=== PATIENT | male | born 1955 | race African-American/Black ===

== ENCOUNTER 2023-07-21 11:45 | Inpatient (IN) | payer OTHER ==
[2023-07-21 12:23] VITALS: BMI 23.7
[2023-07-21] MEDS ORDERED: VANCOMYCIN 1 GM PREMIX - 1 GM/200 ML BAG IVPB ONE (13:41)
[2023-07-21] MEDS ORDERED: VANCOMYCIN 1 GRAM (PRE-DOCKED) 1,000 MG/250 ML BAG IVPB ONE (14:17)
[2023-07-21 14:52] LABS: BASO % 0.2 % (0-2.0); EOS % 0.1 % (0-4.5); HEMOGLOBIN 11.6 GM/dL (11.7-16.9); LYMPH % 12.1 % (8-40); MCH 29.7 pg (25.7-33.7); MCHC 31.4 g/dl (32.0-35.9); MEAN CELL VOLUME 94.6 fl (80-96); MEAN PLT VOLUME 7.9 fl (7.5-11.1); NEUT % 77.6 % (42.8-82.8); PLATELET COUNT 259 10^3/uL (134-434); RBC 3.91 M/mm3 (4.00-5.60); WHITE BLOOD COUNT 8.4 K/mm3 (4.0-10.0)
[2023-07-21 15:28] LABS: CHLORIDE 99 mmol/L (98-107); SODIUM 141 mmol/L (136-145)
[2023-07-21 15:31] LABS: CALCIUM 8.4 mg/dL (8.5-10.1)
[2023-07-21 15:32] LABS: ALBUMIN 2.8 g/dl (3.4-5.0); BLOOD UREA NITROGEN 17.6 mg/dL (7-18); CO2 33 mmol/L (21-32); GLUCOSE,RANDOM 111 mg/dL (74-106)
[2023-07-21 15:35] LABS: CREATININE 1.2 mg/dL (0.55-1.3); SGOT/AST 71 U/L (15-37); SGPT/ALT 98 U/L (13-61)
[2023-07-21 15:36] LABS: BILIRUBIN,TOTAL 2.3 mg/dL (0.2-1)
[2023-07-21 15:37] LABS: TOT PROT 6.7 g/dl (6.4-8.2)
[2023-07-21 15:38] LABS: ALK PHOS 206 U/L (45-117)
[2023-07-21 15:43] LABS: ANION GAP 9 mmol/L (4-13); POTASSIUM 2.9 mmol/L (3.5-5.1)
[2023-07-21] MEDS ORDERED: KCL 10 MEQ IVPB 10 MEQ/100 ML INFUS.BAG IVPB SCH (16:45)
[2023-07-21 16:56] LABS: MAGNESIUM 2.2 mg/dL (1.8-2.4)
[2023-07-21] MEDS ORDERED: KCL 10 MEQ IVPB 30 MEQ/300 ML INFUS.BAG IVPB ONE (17:49)
[2023-07-22] MEDS ORDERED: PIPERACILLIN/TAZOB 3.375 GM 3.375 GM in DEXTROSE 5%-WATER - 50 ML IVPB SCH (02:00)
[2023-07-22] MEDS: PIPERACILLIN/TAZOB 3.375 GM 3.375 GM in DEXTROSE 5%-WATER - 50 ML IVPB SCH ×2 (02:32→10:40)
[2023-07-22] MEDS ORDERED: PATIENT'S OWN MEDICATION (NON-FORMULARY) (Potassium Chloride [Potassium Chloride] 20 MEQ T PO SCH (10:00)
[2023-07-22 10:08] LABS: HEMATOCRIT 33.4 % (35.4-49); HEMOGLOBIN 11.2 GM/dL (11.7-16.9); MCH 30.8 pg (25.7-33.7); MCHC 33.5 g/dl (32.0-35.9); MEAN CELL VOLUME 91.9 fl (80-96); MEAN PLT VOLUME 7.9 fl (7.5-11.1); PLATELET COUNT 234 10^3/uL (134-434); RBC 3.64 M/mm3 (4.00-5.60); WHITE BLOOD COUNT 7.7 K/mm3 (4.0-10.0)
[2023-07-22 10:21] LABS: CHLORIDE 100 mmol/L (98-107); SODIUM 142 mmol/L (136-145)
[2023-07-22 10:26] LABS: ALBUMIN 2.4 g/dl (3.4-5.0); BLOOD UREA NITROGEN 17.9 mg/dL (7-18); CALCIUM 8.2 mg/dL (8.5-10.1); CO2 29 mmol/L (21-32); GLUCOSE,RANDOM 102 mg/dL (74-106); MAGNESIUM 2.3 mg/dL (1.8-2.4)
[2023-07-22 10:29] LABS: BILIRUBIN,DIRECT 1.4 mg/dL (0.0-0.2); CREATININE 1.1 mg/dL (0.55-1.3); PHOSPHOROUS 2.3 mg/dL (2.5-4.9); SGOT/AST 79 U/L (15-37); SGPT/ALT 84 U/L (13-61)
[2023-07-22 10:31] LABS: BILIRUBIN,TOTAL 2.6 mg/dL (0.2-1); TOT PROT 5.9 g/dl (6.4-8.2)
[2023-07-22 10:32] LABS: ALK PHOS 206 U/L (45-117)
[2023-07-22 10:36] LABS: ANION GAP 12 mmol/L (4-13); POTASSIUM 2.9 mmol/L (3.5-5.1)
[2023-07-22] MEDS: metoPROLOL SUCCINATE 25 MG TAB.SR.24H (FP) PO SCH ×2 (10:39→10:58)
[2023-07-22] MEDS: LOSARTAN 50MG/HCTZ 12.5MG 1 TAB PO SCH ×2 (10:39→10:58)
[2023-07-22] MEDS: amLODIPine BESYLATE 5 MG TABLET (FP) PO SCH ×2 (10:39→10:58)
[2023-07-22] MEDS: POTASSIUM CHLORIDE TABS 20 MEQ TABLET.ER (FP) PO SCH (10:39)
[2023-07-22] MEDS: ENOXAPARIN NA (PORCINE) 40 MG/0.4 ML DISP.SYRIN SQ SCH (10:39)
[2023-07-22] MEDS: LIDOCAINE 4% PATCH TP SCH (10:55)
[2023-07-22] MEDS ORDERED: POLYETHYLENE GLYCOL (HEALTHYLAX) 3350 17 GM PACKET PO ONE (11:30)
[2023-07-22] MEDS ORDERED: MINERAL OIL/PETROLAT/WATER TOPICAL CREAM 454 GM JAR TP PRN (15:09)
[2023-07-22] MEDS: CEFAZOLIN SODIUM 2 GM in DEXTROSE 5%-WATER 100 ML IVPB SCH (16:24)
[2023-07-22] MEDS: THIAMINE HCL 100 MG TABLET (FP) PO SCH (16:24)
[2023-07-22] MEDS: KCL 10 MEQ IVPB 10 MEQ/100 ML INFUS.BAG IVPB SCH ×3 (17:14→20:00)
[2023-07-22 18:08] LABS: COCAINE, UR NEGATIVE (NEGATIVE); METHADONE, UR NEGATIVE (NEGATIVE)
[2023-07-22 18:09] LABS: OPIATES, URI NEGATIVE (NEGATIVE); URINE BARBITURATES NEGATIVE (NEGATIVE)
[2023-07-22 18:12] LABS: PHENCYCLIDINE,URINE NEGATIVE (NEGATIVE); URINE AMPHETAMINES NEGATIVE (NEGATIVE); URINE BENZODIAZEPINES POSITIVE (NEGATIVE)
[2023-07-22] MEDS ORDERED: ACETAMINOPHEN 325 MG TABLET (FP) PO PRN (18:54)
[2023-07-22] MEDS: ACETAMINOPHEN 325 MG TABLET (FP) PO PRN (21:36)
[2023-07-22] MEDS: LIDOCAINE PATCH REMOVAL MC SCH (21:36)
[2023-07-23] MEDS: CEFAZOLIN SODIUM 2 GM in DEXTROSE 5%-WATER 100 ML IVPB SCH ×3 (03:00→17:17)
[2023-07-23 09:06] LABS: POTASSIUM 3.2 mmol/L (3.5-5.1)
[2023-07-23 09:11] LABS: BLOOD UREA NITROGEN 19.7 mg/dL (7-18); CALCIUM 8.5 mg/dL (8.5-10.1)
[2023-07-23 09:12] LABS: ALBUMIN 2.2 g/dl (3.4-5.0)
[2023-07-23 09:14] LABS: BILIRUBIN,DIRECT 1.4 mg/dL (0.0-0.2); CREATININE 1.1 mg/dL (0.55-1.3)
[2023-07-23 09:15] LABS: BILIRUBIN,TOTAL 2.3 mg/dL (0.2-1)
[2023-07-23] MEDS: LIDOCAINE 4% PATCH TP SCH (09:38)
[2023-07-23] MEDS: POTASSIUM CHLORIDE TABS 20 MEQ TABLET.ER (FP) PO SCH (09:39)
[2023-07-23] MEDS: amLODIPine BESYLATE 5 MG TABLET (FP) PO SCH (09:39)
[2023-07-23] MEDS: THIAMINE HCL 100 MG TABLET (FP) PO SCH (09:39)
[2023-07-23] MEDS: metoPROLOL SUCCINATE 25 MG TAB.SR.24H (FP) PO SCH (09:39)
[2023-07-23] MEDS: LOSARTAN 50MG/HCTZ 12.5MG 1 TAB PO SCH (09:40)
[2023-07-23] MEDS: ACETAMINOPHEN 325 MG TABLET (FP) PO PRN ×2 (09:41→17:59)
[2023-07-23] MEDS: ENOXAPARIN NA (PORCINE) 40 MG/0.4 ML DISP.SYRIN SQ SCH (09:44)
[2023-07-23] MEDS ORDERED: POTASSIUM CHLORIDE ORAL LIQUID 20 MEQ/15 ML PO ONE (10:30)
[2023-07-23] MEDS: LIDOCAINE PATCH REMOVAL MC SCH (22:20)
[2023-07-24] MEDS: ACETAMINOPHEN 325 MG TABLET (FP) PO PRN (01:07)
[2023-07-24] MEDS: CEFAZOLIN SODIUM 2 GM in DEXTROSE 5%-WATER 100 ML IVPB SCH ×3 (02:10→17:23)
[2023-07-24 09:43] LABS: BASO % 0.4 % (0-2.0); EOS % 0.4 % (0-4.5); HEMATOCRIT 32.1 % (35.4-49); HEMOGLOBIN 10.2 GM/dL (11.7-16.9); LYMPH % 12.7 % (8-40); MCH 29.6 pg (25.7-33.7); MCHC 31.6 g/dl (32.0-35.9); MEAN CELL VOLUME 93.8 fl (80-96); MEAN PLT VOLUME 7.7 fl (7.5-11.1); MONO % 6.6 % (3.8-10.2); NEUT % 79.9 % (42.8-82.8); PLATELET COUNT 249 10^3/uL (134-434); RBC 3.43 M/mm3 (4.00-5.60); RDW 14.3 % (11.9-15.9); WHITE BLOOD COUNT 8.4 K/mm3 (4.0-10.0)
[2023-07-24 09:54] LABS: POTASSIUM 3.3 mmol/L (3.5-5.1)
[2023-07-24 09:57] LABS: BLOOD UREA NITROGEN 20.6 mg/dL (7-18); CALCIUM 8.1 mg/dL (8.5-10.1)
[2023-07-24] MEDS: POTASSIUM CHLORIDE TABS 20 MEQ TABLET.ER (FP) PO SCH (11:31)
[2023-07-24] MEDS: LOSARTAN 50MG/HCTZ 12.5MG 1 TAB PO SCH (11:32)
[2023-07-24] MEDS: LIDOCAINE 4% PATCH TP SCH (11:32)
[2023-07-24] MEDS: ENOXAPARIN NA (PORCINE) 40 MG/0.4 ML DISP.SYRIN SQ SCH (11:33)
[2023-07-24] MEDS: amLODIPine BESYLATE 5 MG TABLET (FP) PO SCH (11:34)
[2023-07-24] MEDS: metoPROLOL SUCCINATE 25 MG TAB.SR.24H (FP) PO SCH (11:34)
[2023-07-24] MEDS: THIAMINE HCL 100 MG TABLET (FP) PO SCH (11:35)
[2023-07-24 13:36] LABS: INR 1.27 (0.83-1.09); PROTHROMBIN TIME (PATIENT) 14.7 SEC (9.7-13.0)
[2023-07-24] MEDS: MULTIVITAMINS (DAILY MVI) TABLET (FP) PO SCH (13:56)
[2023-07-24] MEDS: FOLIC ACID 1 MG TABLET (FP) PO SCH (13:56)
[2023-07-24] MEDS: LIDOCAINE PATCH REMOVAL MC SCH (22:19)
[2023-07-25] MEDS: CEFAZOLIN SODIUM 2 GM in DEXTROSE 5%-WATER 100 ML IVPB SCH ×3 (01:37→18:16)
[2023-07-25 09:36] LABS: BASO % 0.5 % (0-2.0); EOS % 0.7 % (0-4.5); HEMATOCRIT 31.6 % (35.4-49); HEMOGLOBIN 10.5 GM/dL (11.7-16.9); INR 1.2 (0.83-1.09); LYMPH % 12.2 % (8-40); MCH 30.9 pg (25.7-33.7); MCHC 33.4 g/dl (32.0-35.9); MEAN CELL VOLUME 92.6 fl (80-96); MONO % 6.5 % (3.8-10.2); NEUT % 80.1 % (42.8-82.8); PLATELET COUNT 273 10^3/uL (134-434); PROTHROMBIN TIME (PATIENT) 13.9 SEC (9.7-13.0); RBC 3.41 M/mm3 (4.00-5.60); RDW 14.7 % (11.9-15.9); WHITE BLOOD COUNT 10.7 K/mm3 (4.0-10.0)
[2023-07-25 09:52] LABS: POTASSIUM 3.7 mmol/L (3.5-5.1)
[2023-07-25 09:54] LABS: CALCIUM 8.5 mg/dL (8.5-10.1); MAGNESIUM 2.5 mg/dL (1.8-2.4)
[2023-07-25 09:55] LABS: ALBUMIN 2.1 g/dl (3.4-5.0); BLOOD UREA NITROGEN 21.1 mg/dL (7-18)
[2023-07-25 09:57] LABS: URIC ACID 5.6 mg/dL (2.6-7.2)
[2023-07-25 09:58] LABS: BILIRUBIN,DIRECT 0.6 mg/dL (0.0-0.2); PHOSPHOROUS 3.2 mg/dL (2.5-4.9)
[2023-07-25 09:59] LABS: TOT PROT 6.1 g/dl (6.4-8.2)
[2023-07-25] MEDS ORDERED: NAPROXEN 250 MG TABLET PO PRN (11:00)
[2023-07-25] MEDS: ENOXAPARIN NA (PORCINE) 40 MG/0.4 ML DISP.SYRIN SQ SCH (11:21)
[2023-07-25] MEDS: FOLIC ACID 1 MG TABLET (FP) PO SCH (11:22)
[2023-07-25] MEDS: MULTIVITAMINS (DAILY MVI) TABLET (FP) PO SCH (11:22)
[2023-07-25] MEDS: THIAMINE HCL 100 MG TABLET (FP) PO SCH (11:22)
[2023-07-25] MEDS: LIDOCAINE 4% PATCH TP SCH (11:22)
[2023-07-25] MEDS: metoPROLOL SUCCINATE 25 MG TAB.SR.24H (FP) PO SCH (11:22)
[2023-07-25] MEDS: POTASSIUM CHLORIDE TABS 20 MEQ TABLET.ER (FP) PO SCH (11:23)
[2023-07-25] MEDS: amLODIPine BESYLATE 5 MG TABLET (FP) PO SCH (11:28)
[2023-07-25] MEDS: LOSARTAN 50MG/HCTZ 12.5MG 1 TAB PO SCH (11:28)
[2023-07-25 11:35] LABS: HIV INTERPRETATION NEGATIVE (NEGATIVE)
[2023-07-25] MEDS ORDERED: IRON SUCROSE INJECTION 200 MG in SODIUM CHLORIDE 90 ML IVPB ONE ×2 (11:57→14:00)
[2023-07-25] MEDS ORDERED: NAPROXEN 250 MG TABLET PO SCH (12:02)
[2023-07-25] MEDS: NAPROXEN 500 MG TABLET PO SCH ×2 (14:02→21:45)
[2023-07-25] MEDS ORDERED: POTASSIUM CHLORIDE TABS 20 MEQ TABLET.ER (FP) PO ONE (14:48)
[2023-07-25] MEDS: LIDOCAINE PATCH REMOVAL MC SCH (21:45)
[2023-07-26] MEDS: CEFAZOLIN SODIUM 2 GM in DEXTROSE 5%-WATER 100 ML IVPB SCH ×3 (01:13→17:20)
[2023-07-26] MEDS ORDERED: traMADol HCL 50 MG TABLET PO PRN (07:54)
[2023-07-26 08:14] LABS: BASO % 0.5 % (0-2.0); EOS % 1.4 % (0-4.5); HEMATOCRIT 31.5 % (35.4-49); HEMOGLOBIN 10.2 GM/dL (11.7-16.9); LYMPH % 15.8 % (8-40); MCH 30.5 pg (25.7-33.7); MCHC 32.3 g/dl (32.0-35.9); MEAN CELL VOLUME 94.3 fl (80-96); MEAN PLT VOLUME 7.6 fl (7.5-11.1); MONO % 6.7 % (3.8-10.2); NEUT % 75.6 % (42.8-82.8); PLATELET COUNT 282 10^3/uL (134-434); RBC 3.34 M/mm3 (4.00-5.60); RDW 14.5 % (11.9-15.9); WHITE BLOOD COUNT 8.3 K/mm3 (4.0-10.0)
[2023-07-26 08:21] LABS: POTASSIUM 3.8 mmol/L (3.5-5.1)
[2023-07-26 08:23] LABS: ALBUMIN 2.1 g/dl (3.4-5.0); BLOOD UREA NITROGEN 22.2 mg/dL (7-18)
[2023-07-26 08:28] LABS: BILIRUBIN,TOTAL 0.8 mg/dL (0.2-1); TOT PROT 5.8 g/dl (6.4-8.2)
[2023-07-26] MEDS: THIAMINE HCL 100 MG TABLET (FP) PO SCH (10:39)
[2023-07-26] MEDS: MULTIVITAMINS (DAILY MVI) TABLET (FP) PO SCH (10:40)
[2023-07-26] MEDS: FOLIC ACID 1 MG TABLET (FP) PO SCH (10:40)
[2023-07-26] MEDS: POTASSIUM CHLORIDE TABS 20 MEQ TABLET.ER (FP) PO SCH (10:43)
[2023-07-26] MEDS: LIDOCAINE 4% PATCH TP SCH (10:43)
[2023-07-26] MEDS: LOSARTAN 50MG/HCTZ 12.5MG 1 TAB PO SCH (10:43)
[2023-07-26] MEDS: NAPROXEN 500 MG TABLET PO SCH ×2 (10:44→21:46)
[2023-07-26] MEDS: metoPROLOL SUCCINATE 25 MG TAB.SR.24H (FP) PO SCH (10:44)
[2023-07-26] MEDS: amLODIPine BESYLATE 5 MG TABLET (FP) PO SCH (10:44)
[2023-07-26 14:12] LABS: BF WBC & OTHER NUCLEATED CELLS 4168 /mm3
[2023-07-26 14:24] LABS: BODY FLUID MONOCYTE 10 %
[2023-07-26] MEDS: LIDOCAINE PATCH REMOVAL MC SCH (21:48)
[2023-07-27] MEDS: CEFAZOLIN SODIUM 2 GM in DEXTROSE 5%-WATER 100 ML IVPB SCH ×3 (01:13→18:59)
[2023-07-27 08:06] LABS: CARCINOEMBRYONIC ANTIGEN 1.6 ng/mL (0.0-4.7)
[2023-07-27] MEDS: FOLIC ACID 1 MG TABLET (FP) PO SCH (10:05)
[2023-07-27] MEDS: THIAMINE HCL 100 MG TABLET (FP) PO SCH (10:05)
[2023-07-27] MEDS: NAPROXEN 500 MG TABLET PO SCH ×2 (10:05→21:53)
[2023-07-27] MEDS: MULTIVITAMINS (DAILY MVI) TABLET (FP) PO SCH (10:05)
[2023-07-27] MEDS: LIDOCAINE 4% PATCH TP SCH (10:05)
[2023-07-27] MEDS: LOSARTAN 50MG/HCTZ 12.5MG 1 TAB PO SCH (10:20)
[2023-07-27] MEDS: metoPROLOL SUCCINATE 25 MG TAB.SR.24H (FP) PO SCH (10:20)
[2023-07-27] MEDS: amLODIPine BESYLATE 5 MG TABLET (FP) PO SCH (10:20)
[2023-07-27] MEDS: POTASSIUM CHLORIDE TABS 20 MEQ TABLET.ER (FP) PO SCH (10:30)
[2023-07-27 11:14] LABS: BASO % 0.4 % (0-2.0); EOS % 1.2 % (0-4.5); HEMATOCRIT 33.8 % (35.4-49); HEMOGLOBIN 10.6 GM/dL (11.7-16.9); LYMPH % 14.7 % (8-40); MCHC 31.4 g/dl (32.0-35.9); MEAN CELL VOLUME 95.4 fl (80-96); MEAN PLT VOLUME 7.8 fl (7.5-11.1); NEUT % 78.7 % (42.8-82.8); PLATELET COUNT 326 10^3/uL (134-434); RBC 3.54 M/mm3 (4.00-5.60); RDW 14.3 % (11.9-15.9); WHITE BLOOD COUNT 8.4 K/mm3 (4.0-10.0)
[2023-07-27 11:28] LABS: POTASSIUM 3.9 mmol/L (3.5-5.1)
[2023-07-27 11:37] LABS: BILIRUBIN,TOTAL 0.6 mg/dL (0.2-1)
[2023-07-27 12:35] LABS: ALBUMIN 2.3 g/dl (3.4-5.0); BLOOD UREA NITROGEN 23.1 mg/dL (7-18)
[2023-07-27 12:37] LABS: CALCIUM 8.4 mg/dL (8.5-10.1)
[2023-07-27 12:40] LABS: TOT PROT 6.2 g/dl (6.4-8.2)
[2023-07-27 20:07] LABS: GLIADIN ANTIBODY IGA 4 units (0-19); GLIADIN ANTIBODY IGG 2 units (0-19); TRANSGLUTAMINASE IGG 3 U/mL (0-5)
[2023-07-27] MEDS: LIDOCAINE PATCH REMOVAL MC SCH (22:19)
[2023-07-28] MEDS: CEFAZOLIN SODIUM 2 GM in DEXTROSE 5%-WATER 100 ML IVPB SCH ×3 (01:59→17:58)
[2023-07-28 10:02] LABS: BASO % 0.5 % (0-2.0); EOS % 1.7 % (0-4.5); HEMATOCRIT 31.6 % (35.4-49); HEMOGLOBIN 10.4 GM/dL (11.7-16.9); LYMPH % 12.6 % (8-40); MCH 30.7 pg (25.7-33.7); MCHC 32.9 g/dl (32.0-35.9); MEAN CELL VOLUME 93.4 fl (80-96); MEAN PLT VOLUME 7.7 fl (7.5-11.1); MONO % 5.5 % (3.8-10.2); NEUT % 79.7 % (42.8-82.8); PLATELET COUNT 322 10^3/uL (134-434); RBC 3.38 M/mm3 (4.00-5.60); RDW 14.8 % (11.9-15.9); WHITE BLOOD COUNT 6.4 K/mm3 (4.0-10.0)
[2023-07-28 10:20] LABS: POTASSIUM 3.8 mmol/L (3.5-5.1)
[2023-07-28 10:24] LABS: CALCIUM 8.3 mg/dL (8.5-10.1)
[2023-07-28 10:25] LABS: ALBUMIN 2.2 g/dl (3.4-5.0); BLOOD UREA NITROGEN 21.1 mg/dL (7-18)
[2023-07-28 10:28] LABS: CREATININE 0.9 mg/dL (0.55-1.3)
[2023-07-28 10:29] LABS: BILIRUBIN,TOTAL 0.7 mg/dL (0.2-1); TOT PROT 6.1 g/dl (6.4-8.2)
[2023-07-28] MEDS: THIAMINE HCL 100 MG TABLET (FP) PO SCH (11:31)
[2023-07-28] MEDS: LIDOCAINE 4% PATCH TP SCH (11:31)
[2023-07-28] MEDS: POTASSIUM CHLORIDE TABS 20 MEQ TABLET.ER (FP) PO SCH (11:31)
[2023-07-28] MEDS: MULTIVITAMINS (DAILY MVI) TABLET (FP) PO SCH (11:32)
[2023-07-28] MEDS: NAPROXEN 500 MG TABLET PO SCH (11:32)
[2023-07-28] MEDS: FOLIC ACID 1 MG TABLET (FP) PO SCH (11:32)
[2023-07-28 18:31] VITALS: BP 117/73; PULSE 63; RESP 19; TEMP 97.7
== END 2023-07-28 20:03 | DRG 603 ==
LOC: JER 11:45 → JERBED 18:35 → J5S 21:08
PROVIDERS: ADMIT Internal Medicine; ATTEND Internal Medicine
PROC: 0S9D3ZZ Drainage of Left Knee Joint, Percutaneous Approach (ICD-10-PCS; principal; 2023-07-26)
DX: L03.116 Cellulitis of left lower limb (principal); E87.6 Hypokalemia; R74.01 Elevation of levels of liver transaminase levels; L30.9 Dermatitis, unspecified; I10 Essential (primary) hypertension; F10.10 Alcohol abuse, uncomplicated; D64.9 Anemia, unspecified; M25.462 Effusion, left knee; R26.2 Difficulty in walking, not elsewhere classified; F17.210 Nicotine dependence, cigarettes, uncomplicated
CPT/HCPCS: 36415; 73502-TC-LT-FY; 73590-TC-LT-FY; 73590-TC-RT-FY; 73610-TC-LT-FY; 73610-TC-RT-FY; 73630-TC-LT; 73630-TC-RT-FY; 73700-TC-RT; 76705-TC; 80048; 80053; 80076; 80307; 82105; 82378; 82607; 82728; 82746; 82784; 82962; 83516; 83540; 83550; 83615; 83735; 84100; 84155; 84165; 84550; 85025; 85027; 85045; 85610; 85651; 86038; 86140; 86301; 86334; 86704; 86709; 86803; 87040; 87070; 87075; 87205; 87340; 87350; 87389; 87517; 87635; 89060; 93005; 93010; 93306-TC; 93970-TC; 97116-GP; 97162-GP; 99285-25; J1756